=== PATIENT | male | born 1975 | race African-American/Black ===

== ENCOUNTER 2016-10-15 23:08 | Emergency (ER) | payer MEDICAID | END 2016-10-15 23:22 | disposition left against medical advice (07) | LOC: ER 23:08 | DX: Z53.21 Procedure and treatment not carried out due to patient leaving prior to being seen by health care provider (principal) ==

== ENCOUNTER 2017-11-09 06:35 | Emergency (ER) | payer SELFPAY ==
[2017-11-09 06:40] VITALS: BP 181/106
[2017-11-09] MEDS ORDERED: INDOMETHACIN 50 MG CAPSULE PO ONE (07:56)
[2017-11-09] MEDS ORDERED: COLCHICINE 0.6 MG TABLET PO ONE ×2 (07:56→08:52)
--- NOTE | 2017-11-09 08:46 | RADIOLOGY REPORT (SQ) ---
EXAM DESCRIPTION: HAND LEFT 2 VIEWS COMPLETED DATE/TIME: 11/09/2017 8:36 am REASON FOR STUDY: left hand swelling, pain COMPARISON: None. EXAM PARAMETERS: NUMBER OF VIEWS: Three views. TECHNIQUE: AP, lateral and oblique radiographic images acquired of the left hand. LIMITATIONS: None. FINDINGS: MINERALIZATION: Normal. BONES: No acute fracture or dislocation. No worrisome bone lesions. No significant osteophytes. JOINTS: No erosions. No naun-articular osteopenia. No chondrocalcinosis. SOFT TISSUES: Diffuse swelling. No calcifications. OTHER: No other significant finding. IMPRESSION: Diffuse swelling of the hand without acute or chronic osseous abnormality. TECHNICAL DOCUMENTATION: JOB ID: [id number] [employer]- All Rights Reserved Reading location - IP/workstation name: [email or web address]
--- NOTE | 2017-11-09 08:52 | ER Document Report ---
ED Hand/Wrist Injury - General Chief Complaint: Wrist Pain Stated Complaint: POSSIBLE GOUT Time Seen by Provider: 11/09/17 07:32 Mode of Arrival: Ambulatory Information source: Patient Notes: Patient is a 42-year-old male with a history of gout who presents to the ER today for left hand pain, swelling 4 days. Patient has seen his family care who gave him prednisone and hydrocodone, but he states that they are not helping at all. Patient states that he has had gout in this hand before and it was similar to this. He does not take any medicine at all for gout. He denies any injury to the hand. TRAVEL OUTSIDE OF THE [place] IN LAST 30 DAYS: No - Related Data Allergies/Adverse Reactions: No Known Drug Allergies Allergy (Verified 02/22/12 09:26) Past Medical History - General Information source: Patient - Social History Smoking Status: Current Every Day Smoker Chew tobacco use (# tins/day): No Frequency of alcohol use: Occasional Drug Abuse: None Family History: Reviewed & Not Pertinent Patient has suicidal ideation: No Patient has homicidal ideation: No - Past Medical History Cardiac Medical History: Reports: Hx Hypertension Renal/ Medical History: Denies: Hx Peritoneal Dialysis Musculoskeltal Medical History: Denies Hx Gout - Immunizations Hx Diphtheria, Pertussis, Tetanus Vaccination: Yes Review of Systems - Review of Systems Constitutional: No symptoms reported EENT: No symptoms reported Cardiovascular: No symptoms reported Respiratory: No symptoms reported Gastrointestinal: No symptoms reported Genitourinary: No symptoms reported Male Genitourinary: No symptoms reported Musculoskeletal: See HPI Skin: No symptoms reported Hematologic/Lymphatic: No symptoms reported Neurological/Psychological: No symptoms reported Physical Exam - Vital signs Vitals: Temp Pulse Resp BP Pulse Ox 98.3 F 95 18 181/106 H 95 11/09/17 06:39 11/09/17 06:39 11/09/17 06:39 11/09/17 06:39 11/09/17 06:39 - Notes Notes: PHYSICAL EXAMINATION: GENERAL: Uncomfortable, holding left hand in no acute distress. HEAD: Atraumatic, normocephalic. EYES: Pupils equal round and reactive to light, extraocular movements intact, sclera anicteric, conjunctiva are normal. NECK: Normal range of motion, supple without lymphadenopathy LUNGS: CTAB and equal. No wheezes rales or rhonchi. HEART: Regular rate and rhythm without murmurs EXTREMITIES: Normal range of motion but with swelling to the left hand dorsally including left wrist, not including fingers, no pitting edema. No cyanosis. NEUROLOGICAL: Cranial nerves grossly intact. Normal sensory/motor exams. PSYCH: Normal mood, normal affect. SKIN: Warm, Dry, normal turgor, left dorsal hand warm to the touch, no erythema or ecchymosis Course - Re-evaluation Re-evalutation: 11/09/17 08:51 X-ray negative for any acute pathology except for some diffuse swelling which is obvious on clinical exam. Patient will be given 2 doses of Colcrys, 1.2 mg and then 0.6 mg consecutively to help with gout flare and then indomethacin 50 mg to help with gout pain. - Vital Signs Vital signs: Temp Pulse Resp BP Pulse Ox 98.3 F 95 18 181/106 H 95 11/09/17 06:39 11/09/17 06:39 11/09/17 06:39 11/09/17 06:39 11/09/17 06:39 Discharge - Discharge Clinical Impression: Gout of left hand Qualifiers: Gout etiology: unspecified cause Chronicity: acute Qualified Code(s): M10.9 - Gout, unspecified Condition: Stable Disposition: HOME, SELF-CARE Additional Instructions: Return immediately for any new or worsening symptoms. Follow up with primary care provider, call tomorrow to make followup appointment. Prescriptions: Indomethacin [Indocin 50 mg Capsule] 50 mg PO TID PRN #15 capsule PRN Reason: Forms: Return to Work Referrals: ANGIE JO MD [Primary Care Provider] - Follow up as needed
== END 2017-11-09 09:23 | disposition home or self-care (01) ==
LOC: ER 06:35
DX: M10.9 Gout, unspecified (principal); M25.532 Pain in left wrist; I10 Essential (primary) hypertension; F17.210 Nicotine dependence, cigarettes, uncomplicated
CPT/HCPCS: 99283; 73120; J3490

== ENCOUNTER 2018-05-27 08:33 | Emergency (ER) | payer SELFPAY ==
[2018-05-27 08:42] VITALS: BP 159/93
--- NOTE | 2018-05-27 09:19 | ER Document Report ---
HPI - HPI Pain Level: Denies Notes: Patient is a 42-year-old male who presents with request for a blood pressure medication refill. Patient has no complaints at this time. States he has been out of his medicine for 2 days. - CONSTITUTIONAL Constitutional: DENIES: Fever, Chills - EENT EENT: DENIES: Sore Throat, Ear Pain, Eye problems - NEURO Neurology: DENIES: Headache, Weakness, Vision blurred, Dizzinesss / Vertigo - CARDIOVASCULAR Cardiovascular: DENIES: Chest pain - RESPIRATORY Respiratory: DENIES: Trouble Breathing, Coughing - GASTROINTESTINAL Gastrointestinal: DENIES: Abdominal Pain, Black / Bloody Stools - URINARY Urinary: DENIES: Dysuria, Urgency, Frequency - MUSCULOSKELETAL Musculoskeletal: DENIES: Extremity pain Past Medical History - General Information source: Patient - Social History Smoking Status: Former Smoker Chew tobacco use (# tins/day): No Frequency of alcohol use: Social Drug Abuse: None Family History: Reviewed & Not Pertinent Patient has suicidal ideation: No Patient has homicidal ideation: No - Past Medical History Cardiac Medical History: Reports: Hx Hypertension Renal/ Medical History: Denies: Hx Peritoneal Dialysis Musculoskeletal Medical History: Denies Hx Gout - Immunizations Hx Diphtheria, Pertussis, Tetanus Vaccination: Yes Vertical Provider Document - CONSTITUTIONAL Notes: PHYSICAL EXAMINATION: GENERAL: Well-appearing, well-nourished and in no acute distress. HEAD: Atraumatic, normocephalic. EYES: Pupils equal round extraocular movements intact, conjunctiva are normal. ENT: Nares patent NECK: Normal range of motion LUNGS: No respiratory distress Musculoskeletal: Normal range of motion NEUROLOGICAL: Normal speech, normal gait. PSYCH: Normal mood, normal affect. SKIN: Warm, Dry, normal turgor, no rashes or lesions noted. - INFECTION CONTROL TRAVEL OUTSIDE OF THE [place] IN LAST 30 DAYS: No Course - Re-evaluation Re-evalutation: 05/27/18 09:18 Blood pressure medications refilled for 30 days. - Vital Signs Vital signs: Temp Pulse Resp BP Pulse Ox 98.4 F 74 16 159/93 H 99 05/27/18 08:41 05/27/18 08:41 05/27/18 08:41 05/27/18 08:41 05/27/18 08:41 Discharge - Discharge Clinical Impression: Medication refill Condition: Stable Disposition: HOME, SELF-CARE Additional Instructions: Your blood pressure medications have been refilled today. Please keep the appointment that you have with [facility] for next week, they will be able to refilled medications for a longer amount of time for you. Please return to the emergency department for any additional concerns or needs. Prescriptions: Amlodipine Besylate 10 mg PO DAILY #30 tab Clonidine HCl 0.1 mg PO DAILY #30 tablet Lisinopril/Hydrochlorothiazide [Lisinopril-Hctz 20-25 mg Tab] 1 each PO DAILY # 30 tablet Referrals: ANGIE JO MD [Primary Care Provider] - Follow up as needed
== END 2018-05-27 09:24 | disposition home or self-care (01) ==
LOC: ER 08:33
DX: I10 Essential (primary) hypertension (principal)
CPT/HCPCS: 99281

== ENCOUNTER 2018-07-10 07:29 | Emergency (ER) | payer SELFPAY ==
--- NOTE | 2018-07-10 08:01 | ER Document Report ---
HPI - HPI Time Seen by Provider: 07/10/18 07:37 Pain Level: 4 Notes: Patient is a 43-year-old male who presents with chief complaint for medication refill. Patient reports he takes indomethacin 25 mg 3 times daily whenever he has a gout flareup. Patient reports over the last several days he started having increasing pain to the left knee, he states this is typical of 1 of his gout attacks. He states he has been eating a lot of steak lately. Patient denies any other symptoms, denies any trauma to the area. Past Medical History - General Information source: Patient - Social History Smoking Status: Never Smoker Frequency of alcohol use: Occasional Lives with: Alone Family History: Reviewed & Not Pertinent - Past Medical History Cardiac Medical History: Reports: Hx Hypertension Renal/ Medical History: Denies: Hx Peritoneal Dialysis Musculoskeletal Medical History: Denies Hx Gout - Immunizations Hx Diphtheria, Pertussis, Tetanus Vaccination: Yes Vertical Provider Document - CONSTITUTIONAL Notes: PHYSICAL EXAMINATION: GENERAL: Well-appearing, well-nourished and in no acute distress. HEAD: Atraumatic, normocephalic. EYES: Pupils equal round extraocular movements intact, conjunctiva are normal. ENT: Nares patent NECK: Normal range of motion LUNGS: No respiratory distress Musculoskeletal: Normal range of motion, swelling noted to left knee, no ecchymosis or erythema noted. NEUROLOGICAL: Normal speech, normal gait. PSYCH: Normal mood, normal affect. SKIN: Warm, Dry, normal turgor, no rashes or lesions noted. - INFECTION CONTROL TRAVEL OUTSIDE OF THE [place] IN LAST 30 DAYS: No Course - Re-evaluation Re-evalutation: 07/10/18 08:01 Patient's history and physical are consistent with acute gout flareup. Patient will be represcribed indomethacin as that is what he usually takes. Patient will be discharged home in stable condition. Discharge - Discharge Clinical Impression: Acute gout Qualifiers: Gout site: knee Gout etiology: unspecified cause Laterality: left Qualified Code(s): M10.9 - Gout, unspecified Condition: Stable Disposition: HOME, SELF-CARE Additional Instructions: Gout You have been diagnosed as having gout. Gout is a problem caused by an excess of uric acid, a natural chemical found in the body. The cause of this disease is unknown. Gout arthritis occurs when crystals of uric acid form in the joints. The big toe is the most common joint involved, but any joint can become affected. Persons with gout may also form uric acid kidney stones, resulting in flank pain and blood in the urine. Nodules of uric acid may form under the skin. The first step of treatment is to decrease the inflammation in the joint with antiinflammatory medication. Medication to lower the uric acid level in the blood may then be prescribed. This medication should be taken regularly, as any sudden change in dosage may provoke an attack of gout. Some foods, such as red meat, can provoke an attack in some gout sufferers. Call the doctor if new symptoms arise, or if you do not improve. Gout Diet Changing your diet can decrease the uric acid in your blood. High levels of uric acid cause gouty arthritis and uric acid kidney stones. If you have gout , you should avoid meats that are high in purine. Meat products to avoid include liver, kidneys, and brains. In general, poultry is better than red meats. Seafoods to avoid include anchovies, sardines, skinner, mackerel, and scallops. In addition to limiting purine-rich foods, people with gout should limit protein intake to 10-15% of total calories. Carbohydrate intake should be around 50% of total daily calories. Limit fat intake to 30% of total daily calories. Cholesterol intake should be less than 300 mg/day. Maintain or achieve a healthy body weight. Weight loss should be gradual. Rapid weight loss can actually increase uric acid levels temporarily. Alcohol, especially beer, should be avoided. Get plenty of fluids. This dilutes urinary uric acid, and helps prevent uric acid kidney stones. Drink eight to twelve cups of water daily. Please take medication as prescribed. I did give you a refill on this medication. Try to adhere to the gout diet as outlined above. This will help reduce the number of times to have acute gout attacks. Follow-up with your primary care provider. Prescriptions: Indomethacin 50 mg PO TID #30 capsule Referrals: ANGIE JO MD [Primary Care Provider] - Follow up as needed
== END 2018-07-10 08:11 | disposition home or self-care (01) ==
LOC: ER 07:29
DX: M10.9 Gout, unspecified (principal); I10 Essential (primary) hypertension
CPT/HCPCS: 99283

== ENCOUNTER 2018-07-31 07:28 | Emergency (ER) | payer SELFPAY ==
[2018-07-31] MEDS ORDERED: CLONIDINE HCL 0.1 MG TABLET PO ONE (08:25)
[2018-07-31] MEDS ORDERED: HYDROCHLOROTHIAZIDE 25 MG TABLET PO ONE (08:25)
[2018-07-31] MEDS ORDERED: LISINOPRIL 10 MG TABLET PO ONE (08:25)
--- NOTE | 2018-07-31 08:28 | ER Document Report ---
ED General - General Chief Complaint: Headache >24 hrs old Stated Complaint: BLOOD PRESSURE ISSUE Time Seen by Provider: 07/31/18 08:20 TRAVEL OUTSIDE OF THE [place] IN LAST 30 DAYS: No - Related Data Allergies/Adverse Reactions: No Known Drug Allergies Allergy (Verified 07/31/18 07:30) Past Medical History - Social History Smoking Status: Unknown if Ever Smoked Family History: Reviewed & Not Pertinent Patient has suicidal ideation: No Patient has homicidal ideation: No - Past Medical History Cardiac Medical History: Reports: Hx Hypertension Renal/ Medical History: Denies: Hx Peritoneal Dialysis Musculoskeletal Medical History: Denies Hx Gout - Immunizations Hx Diphtheria, Pertussis, Tetanus Vaccination: Yes Physical Exam - Vital signs Vitals: Temp Pulse Resp BP Pulse Ox 98.7 F 86 16 173/106 H 100 07/31/18 07:34 07/31/18 07:34 07/31/18 07:34 07/31/18 07:34 07/31/18 07:34 Course - Vital Signs Vital signs: Temp Pulse Resp BP Pulse Ox 98.7 F 86 16 173/106 H 100 07/31/18 07:34 07/31/18 07:34 07/31/18 07:34 07/31/18 07:34 07/31/18 07:34 Discharge - Discharge Clinical Impression: Blood pressure check, Medication refill Condition: Good Disposition: HOME, SELF-CARE Instructions: High Blood Pressure, Requiring Treatment ([facility]) Additional Instructions: You were seen today in the emergency department for your elevated blood pressure. You had evaluation including a physical exam as well as administration of blood pressure medication. You have been given a prescription for clonidine, amlodipine, lisinopril, hydrochlorothiazide. It is important that you take these medications as directed daily. Call your primary physician today to schedule an appointment. Return in case you have any worsening headaches, chest pain, shortness of breath or other symptoms. Prescriptions: Amlodipine Besylate [Norvasc 10 mg Tablet] 10 mg PO DAILY #30 tablet Clonidine HCl [Clonidine HCl ER] 0.1 mg PO Q12 #60 tab.er.12h Hydrochlorothiazide [Hydrodiuril 25 mg Tablet] 25 mg PO QAM #30 tablet Lisinopril 20 mg PO DAILY #30 tablet Referrals: ANGIE JO MD [Primary Care Provider] - Follow up as needed
[2018-07-31 09:04] VITALS: BP 151/98
== END 2018-07-31 09:07 | disposition home or self-care (01) ==
LOC: ER 07:28
DX: Z76.0 Encounter for issue of repeat prescription (principal); I10 Essential (primary) hypertension; R51 Headache
CPT/HCPCS: 99283

== ENCOUNTER 2019-12-13 16:45 | Emergency (ER) | payer SELFPAY ==
--- NOTE | 2019-12-13 17:31 | ER Document Report ---
ED Medical Screen (RME) - General Chief Complaint: Foot Pain Stated Complaint: RIGHT FOOT PAIN Time Seen by Provider: 12/13/19 17:22 Primary Care Provider: ANGIE JO MD [NO LOCAL MD] - Follow up in 3-5 days Mode of Arrival: Ambulatory Information source: Patient Notes: 44-year-old male with history of gout presents emergency department with complaints of right foot pain due to gout. Reports symptoms started about 3 to 4 days ago. Reports he believes he ate mushrooms which he should not and then he started hurting. Is not taking any kind of medication at this time for gout. Denies fever vomiting diarrhea. Denies trauma. Reports pain with walking. He is using a cane to walk. Patient reports he has been evaluated here before for gout and he was treated within the [place]. He reports that is only thing that fixed. TRAVEL OUTSIDE OF THE [place] IN LAST 30 DAYS: No - HPI Onset: Other - 4-5 days ago Onset/Duration: Persistent Quality of pain: Achy Severity: Severe Associated Symptoms: None Exacerbated by: Walking Relieved by: Denies Similar symptoms previously: Yes Recently seen / treated by doctor: No - Related Data Allergies/Adverse Reactions: No Known Drug Allergies Allergy (Verified 07/31/18 07:30) Past Medical History - General Information source: Patient - Social History Cigarette use (# per day): No Chew tobacco use (# tins/day): No Frequency of alcohol use: Occasional Drug Abuse: None Family history: None - Past Medical History Cardiac Medical History: Reports: Hx Hypertension Renal/ Medical History: Denies: Hx Peritoneal Dialysis Musculoskeltal Medical History: Reports Hx Gout Surgical Hx: Negative - Immunizations Hx Diphtheria, Pertussis, Tetanus Vaccination: Yes Review of Systems - Review of Systems Notes: Review HPI for review of systems., All other systems negative Physical Exam - Vital signs Vitals: Temp 99.2 F 12/13/19 16:46 - General General appearance: Appears well, Alert In distress: None - HEENT Head: Normocephalic, Atraumatic Eyes: Normal Conjunctiva: Normal Neck: Supple - Respiratory Respiratory status: No respiratory distress Breath sounds: Normal - Cardiovascular Rhythm: Regular, Tachycardia - Abdominal Inspection: Normal - Extremities General upper extremity: Normal color, Normal ROM General lower extremity: Normal ROM Foot: Tender, Other - Right great toe medial with erythema swelling cap refill less than 3 seconds pedal pulse +3 - Neurological Neuro grossly intact: Yes Cognition: Normal Orientation: AAOx4 Rl Coma Scale Eye Opening: Spontaneous Rl Coma Scale Verbal: Oriented Rl Coma Scale Motor: Obeys Commands Rl Coma Scale Total: 15 Speech: Normal - Psychological Associated symptoms: Normal affect, Normal mood - Skin Skin Temperature: Warm Skin Moisture: Dry Skin Color: Normal Course - Re-evaluation Re-evalutation: 12/13/19 18:25 Foot X-Ray 12/13/19 17:38 IMPRESSION: NEGATIVE STUDY OF THE RIGHT FOOT. NO EXPLANATION FOR PAIN. Patient instructed on negative x-ray. Instructed on indomethacin and Terrell for acute pain. Instructed to monitor his diet follow-up with his primary care return for worsening symptoms. He verbalized understand all instructions. - Vital Signs Vital signs: Temp Pulse Resp BP Pulse Ox 99.2 F 102 H 16 177/99 H 99 12/13/19 16:49 12/13/19 16:49 12/13/19 16:49 12/13/19 16:49 12/13/19 16:49 - Diagnostic Test Radiology reviewed: Image reviewed, Reports reviewed Doctor's Discharge - Discharge Clinical Impression: Right foot pain Gout Qualifiers: Gout site: toe Gout etiology: unspecified cause Chronicity: acute Laterality: right Qualified Code(s): M10.9 - Gout, unspecified Condition: Stable Disposition: HOME, SELF-CARE Instructions: Anti-Inflammatory Medication ([facility]), Gout ([facility]), Gout Diet ([facility]), Oral Narcotic Medication ([facility]) Additional Instructions: *You have been evaluated for foot pain with history of gout *Monitor your diet *Follow up with your primary care provider within 1 week *Take medication as prescribed *Return to the emergency department for worsening symptoms, concerns, needs. Prescriptions: Indomethacin [Indocin 50 mg Capsule] 50 mg PO TID #30 capsule Forms: Elevated Blood Pressure Referrals: ANGIE JO MD [NO LOCAL MD] - Follow up in 3-5 days
[2019-12-13] MEDS ORDERED: INDOMETHACIN 25 MG CAPSULE PO ONE (17:45)
--- NOTE | 2019-12-13 18:01 | RADIOLOGY REPORT (SQ) ---
EXAM DESCRIPTION: FOOT RIGHT COMPLETE IMAGES COMPLETED DATE/TIME: 12/13/2019 5:51 pm REASON FOR STUDY: pain, swelling, erythema hx gout COMPARISON: None. NUMBER OF VIEWS: Three views. TECHNIQUE: AP, lateral and oblique without weight bearing radiographic images acquired of the right foot. LIMITATIONS: None. FINDINGS: MINERALIZATION: Normal. BONES: No acute fracture or dislocation. No worrisome bone lesions. No significant osteophytes. JOINTS: No erosions. No naun-articular osteopenia. No chondrocalcinosis. SOFT TISSUES: No swelling. No calcifications. OTHER: No other significant finding. IMPRESSION: NEGATIVE STUDY OF THE RIGHT FOOT. NO EXPLANATION FOR PAIN. TECHNICAL DOCUMENTATION: JOB ID: [id number] 2010 [employer]- All Rights Reserved Reading location - IP/workstation name: [email or web address]
[2019-12-13] MEDS ORDERED: HYDROCODONE/ACETAMINOPHEN 5-325 MG (6 TAB/ER DISP) PO PRN (18:13)
[2019-12-13 18:31] VITALS: BP 138/57
== END 2019-12-13 18:33 | disposition home or self-care (01) ==
LOC: ER 16:45
DX: M10.9 Gout, unspecified (principal); M79.671 Pain in right foot; I10 Essential (primary) hypertension
CPT/HCPCS: 99283; 73630; J3490

== ENCOUNTER 2020-03-24 14:51 | Emergency (ER) | payer SELFPAY ==
--- NOTE | 2020-03-24 17:44 | RADIOLOGY REPORT (SQ) ---
EXAM DESCRIPTION: KNEE LEFT 4 VIEW IMAGES COMPLETED DATE/TIME: 03/24/2020 5:13 pm REASON FOR STUDY: pain/swelling COMPARISON: None. NUMBER OF VIEWS: Four views. TECHNIQUE: AP, lateral, and both oblique radiographic images acquired of the left knee. LIMITATIONS: None. FINDINGS: MINERALIZATION: Normal. BONES: No acute fracture or dislocation. No worrisome bone lesions. JOINT: There is mild narrowing of the lateral joint compartment. There is a moderate joint effusion. SOFT TISSUES: No soft tissue swelling. No radio-opaque foreign body. OTHER: No other significant finding. IMPRESSION: Lateral degenerative joint disease. There is a moderate effusion. No osseous abnormali ty. TECHNICAL DOCUMENTATION: JOB ID: [id number] 2010 [employer]- All Rights Reserved Reading location - IP/workstation name: [email or web address]
[2020-03-24 17:59] LABS: ABSOLUTE BASOPHILS # (AUTO) 0.1 10^3/uL (0.0-0.2); ABSOLUTE EOSINOPHILS # (AUTO) 0.1 10^3/uL (0.0-0.6); ABSOLUTE LYMPHOCYTES (AUTO) 1.7 10^3/uL (0.5-4.7); ABSOLUTE MONOCYTES (AUTO) 1.1 10^3/uL (0.1-1.4); ABSOLUTE NEUT (AUTO) 7.8 10^3/uL (1.7-8.2); BASOPHILS % (AUTO) 0.6 % (0-2); EOSINOPHILS % (AUTO) 0.5 % (0-6); HEMATOCRIT 36.1 % (37.9-51.0); HEMOGLOBIN 11.8 g/dL (13.5-17.0); LYMPHOCYTES % (AUTO) 15.5 % (13-45); MEAN CORPUSCULAR HEMOGLOBIN 29.4 pg (27.0-33.4); MEAN CORPUSCULAR HGB CONC 32.8 g/dL (32.0-36.0); MEAN CORPUSCULAR VOLUME 90 fl (80-97); MONOCYTES % (AUTO) 10.3 % (3-13); PLATELET COUNT 345 10^3/uL (150-450); RED BLOOD COUNT 4.02 10^6/uL (4.35-5.55); RED CELL DISTRIBUTION WIDTH 13.1 % (11.5-14.0); SEGMENTED NEUTROPHILS % (AUTO) 73.1 % (42-78); TOTAL CELLS COUNTED % (AUTO) 100 %; WHITE BLOOD COUNT 10.6 10^3/uL (4.0-10.5)
[2020-03-24 18:17] LABS: ALBUMIN 4.6 g/dL (3.5-5.0); ALKALINE PHOSPHATASE 35 U/L (38-126); ANION GAP 10 (5-19); ASPARTATE AMINO TRANSFERASE 31 U/L (17-59); BILIRUBIN,DIRECT 0.1 mg/dL (0.0-0.4); BILIRUBIN,TOTAL 0.6 mg/dL (0.2-1.3); BLOOD UREA NITROGEN 21 mg/dL (7-20); CALCIUM 10.1 mg/dL (8.4-10.2); CARBON DIOXIDE 33 mmol/L (22-30); CHLORIDE 97 mmol/L (98-107); GLUCOSE 89 mg/dL (75-110); POTASSIUM 3.5 mmol/L (3.6-5.0); TOTAL PROTEIN 7.8 g/dL (6.3-8.2); URIC ACID 7.3 mg/dL (3.5-8.5)
--- NOTE | 2020-03-24 18:59 | ER Document Report ---
HPI - HPI Patient complains to provider of: Left knee pain Time Seen by Provider: 03/24/20 16:31 Pain Level: 3 Context: 44-year-old male past medical history significant for hypertension and gout presents to the emergency room complaining of left knee swelling that started 2 days ago. States he has a history of gout has been trying to monitor his diet although he states has been eating a lot of protein. States he has been seen in the emergency room in the past and has been given indomethacin and a narcotic with good relief. States he is not been taking anything for the pain. He denies any trauma or injury to the knee. States is painful to walk. Associated Symptoms: None Exacerbated by: Movement, Walking Relieved by: Remaining still Similar symptoms previously: Yes - History of gout Recently seen / treated by doctor: No - ROS Systems Reviewed and Negative: Yes All other systems reviewed and negative - CONSTITUTIONAL Constitutional: DENIES: Fever - NEURO Neurology: DENIES: Weakness - RESPIRATORY Respiratory: DENIES: Trouble Breathing - REPRODUCTIVE Reproductive: DENIES: : - MUSCULOSKELETAL Musculoskeletal: REPORTS: Extremity pain - DERM Skin Color: Normal Skin Problems: None Past Medical History - General Information source: Patient - Social History Smoking Status: Current Some Day Smoker Chew tobacco use (# tins/day): No Frequency of alcohol use: Occasional Drug Abuse: None Family History: Reviewed & Not Pertinent Patient has homicidal ideation: No - Past Medical History Cardiac Medical History: Reports: Hx Hypertension Renal/ Medical History: Denies: Hx Peritoneal Dialysis Musculoskeletal Medical History: Reports Hx Gout - Immunizations Hx Diphtheria, Pertussis, Tetanus Vaccination: Yes Vertical Provider Document - CONSTITUTIONAL Agree With Documented VS: Yes Exam Limitations: No Limitations General Appearance: Mild Distress - INFECTION CONTROL TRAVEL OUTSIDE OF THE [place] IN LAST 30 DAYS: No - HEENT HEENT: Atraumatic, Normocephalic - NECK Neck: Normal Inspection, Supple, Thyroid Normal - RESPIRATORY Respiratory: Breath Sounds Normal, No Respiratory Distress, Chest Non-Tender - CARDIOVASCULAR Cardiovascular: Regular Rate, Regular Rhythm, No Murmur - MUSCULOSKELETAL/EXTREMETIES Musculoskeletal/Extremeties: Tender - Tenderness on palpation of the distal left knee. Positive ballottement. Painful range of motion with flexion, extension to the left knee. Negative anterior posterior draw. Negative Nae's, negative Lee Ann's. It is not warm or erythematous - NEURO Level of Consciousness: Awake, Alert, Appropriate Motor/Sensory: No Motor Deficit, No Sensory Deficit - DERM Integumentary: Warm, Dry, No Rash Course - Re-evaluation Re-evalutation: 03/24/20 18:58 Patient's resting comfortably with decreased pain. Reviewed x-ray and lab results with patient. Counseled that labs do not show gout. X-ray shows arthritis with an effusion. Counseled importance of following up outpatient with an orthopedist. Take medications as prescribed. Patient was given strict return to the emergency room guidelines. Return for any new or worsening symptoms. All questions were answered. Patient verbalized understanding and agrees with plan of care. - Vital Signs Vital signs: Temp Pulse Resp BP Pulse Ox 98.8 F 105 H 17 146/81 H 96 03/24/20 15:08 03/24/20 15:08 03/24/20 15:08 03/24/20 15:08 03/24/20 15:08 - Laboratory Result Diagrams: 03/24/20 17:01 03/24/20 17:01 Laboratory results interpreted by me: 03/24/20 03/24/20 17:01 17:01 WBC 10.6 H RBC 4.02 L Hgb 11.8 L Hct 36.1 L Potassium 3.5 L Chloride 97 L Carbon Dioxide 33 H BUN 21 H Alkaline Phosphatase 35 L - Diagnostic Test Radiology reviewed: Reports reviewed Discharge - Discharge Clinical Impression: Knee effusion, left Left knee DJD Qualifiers: Osteoarthritis type: unspecified Qualified Code(s): M17.12 - Unilateral primary osteoarthritis, left knee Condition: Stable Disposition: HOME, SELF-CARE Instructions: Arthritis ([facility]), Knee Effusion ([facility]) Additional Instructions: Rest, ice, elevate your left knee. Take medication as prescribed. Outpatient follow-up with orthopedics on-call physician was provided. Return to the emergency room for any new or worsening symptoms. Prescriptions: Naproxen 500 mg PO BID PRN #14 tablet PRN Reason: Referrals: ALYCE SANCHEZ MD [ACTIVE STAFF] - Follow up as needed
[2020-03-24 19:17] VITALS: BP 139/83
== END 2020-03-24 19:10 | disposition home or self-care (01) ==
LOC: ER 14:51
DX: M17.12 Unilateral primary osteoarthritis, left knee (principal); M25.462 Effusion, left knee; F17.200 Nicotine dependence, unspecified, uncomplicated; I10 Essential (primary) hypertension
CPT/HCPCS: 36415; 80053; 84550; 85025; 99284

== ENCOUNTER 2020-07-05 17:34 | Emergency (ER) | payer SELFPAY ==
[2020-07-05 17:42] VITALS: BP 159/95
--- NOTE | 2020-07-05 18:32 | ER Document Report ---
HPI - HPI Patient complains to provider of: Medication refill Time Seen by Provider: 07/05/20 18:23 Onset: This morning Quality of pain: No pain Pain Level: Denies Context: Patient presents stating he has a history of hypertension and is out of his lisinopril HCTZ. Patient states that he had a headache earlier today although it is resolved at this time. Patient states he has his other blood pressure medicines but needs a refill of this medication. Patient states that he lost his Medicaid and has had difficulty following up with his primary care provider. Patient denies any other concerns or symptoms this evening. Associated Symptoms: Headache - Currently resolved Exacerbated by: Denies Relieved by: Denies Similar symptoms previously: No Recently seen / treated by doctor: No - ROS ROS below otherwise negative: Yes Systems Reviewed and Negative: Yes All other systems reviewed and negative - CONSTITUTIONAL Constitutional: DENIES: Fever, Chills - NEURO Neurology: REPORTS: Headache - Earlier today, now gone. DENIES: Weakness, Vision blurred, Dizzinesss / Vertigo - CARDIOVASCULAR Cardiovascular: DENIES: Chest pain - RESPIRATORY Respiratory: DENIES: Coughing - GASTROINTESTINAL Gastrointestinal: DENIES: Nausea, Patient vomiting - MUSCULOSKELETAL Musculoskeletal: DENIES: Back Pain - DERM Skin Color: Normal Skin Problems: None Past Medical History - General Information source: Patient - Social History Smoking Status: Former Smoker Frequency of alcohol use: Occasional Drug Abuse: None Occupation: None Family History: Reviewed & Not Pertinent - Past Medical History Cardiac Medical History: Reports: Hx Hypertension Renal/ Medical History: Denies: Hx Peritoneal Dialysis Musculoskeletal Medical History: Reports Hx Gout Surgical Hx: Negative - Immunizations Hx Diphtheria, Pertussis, Tetanus Vaccination: Yes Vertical Provider Document - CONSTITUTIONAL Agree With Documented VS: Yes Exam Limitations: No Limitations General Appearance: WD/WN, No Apparent Distress - INFECTION CONTROL TRAVEL OUTSIDE OF THE [place] IN LAST 30 DAYS: No - HEENT HEENT: Atraumatic, Normocephalic - NECK Neck: Normal Inspection, Supple. negative: Lymphadenopathy-Left, Lymphadenopathy-Right - RESPIRATORY Respiratory: Breath Sounds Normal, No Respiratory Distress - CARDIOVASCULAR Cardiovascular: Regular Rate, Regular Rhythm, No Murmur - BACK Back: Normal Inspection - MUSCULOSKELETAL/EXTREMETIES Musculoskeletal/Extremeties: MAEW - NEURO Level of Consciousness: Awake, Alert, Appropriate Motor/Sensory: No Motor Deficit - DERM Integumentary: Warm, Dry, No Rash Course - Re-evaluation Re-evalutation: 07/05/20 18:30 Patient presents with asymptomatic hypertension and request for a med refill. Patient states that he is out of his lisinopril HCTZ and has been unable to get a timely appointment with his doctor. Patient without any other complaints at this time. Patient encouraged to keep a log of his blood pressure readings as well as the timing of his medications to present to his doctor when he sees him for follow-up. - Vital Signs Vital signs: Temp Pulse Resp BP Pulse Ox 98.2 F 70 16 159/95 H 100 07/05/20 17:42 07/05/20 17:42 07/05/20 17:42 07/05/20 17:42 07/05/20 17:42 Discharge - Discharge Clinical Impression: Medication refill Hypertension Qualifiers: Hypertension type: unspecified Qualified Code(s): I10 - Essential (primary) hypertension Condition: Stable Disposition: HOME, SELF-CARE Instructions: High Blood Pressure ([facility]) Additional Instructions: Return immediately for any new or worsening symptoms Followup with your primary care provider, call tomorrow to make a followup appointment Keep a log of your blood pressure readings and present to your primary doctor for follow-up Prescriptions: Lisinopril/Hydrochlorothiazide [Lisinopril-Hctz 20-25 mg Tab] 1 each PO DAILY #30 tablet Referrals: [facility] [Provider Group] - Follow up as needed [facility] [Provider Group] - Follow up as needed
== END 2020-07-05 18:34 | disposition home or self-care (01) ==
LOC: ER 17:34
DX: Z76.0 Encounter for issue of repeat prescription (principal); I10 Essential (primary) hypertension; Z79.899 Other long term (current) drug therapy; Z87.891 Personal history of nicotine dependence
CPT/HCPCS: 99283